=== PATIENT | male | born 1940 | race Caucasian/White ===

== ENCOUNTER → 2016-11-24 | Day surgery (SDC) | payer MEDICARE ==
[~2016-11-24] MED LIST: ADVAIR 2501 DISK W/1 IH; ADVAIR 2501 DISK W/D; ADVAIR 2501 DISK W/D PO; AMITIZA24 MCG PO; AMLODIPINE BESYL5 MG PO; ANUSOL-HC21 GM; ARICEPT PO; ASPIR-TRIN325 MG PO; ASPIRIN PO; BAYER ASPIRIN325 M1 PO; BUDEPRION PO; BUDEPRION SR100 M1 PO; BUDEPRION XL150 MG PO; BUDEPRION XL300 MG PO; BUPROPION HCL150 M1 PO; BUSPIRONE HCL10 MG PO; CELEXA PO; CELEXA20 MG PO; CITALOPRAM HBR40 MG PO; COLACE PO; COMBIVENT INH14.7 GM; CRESTOR10 MG PO; CYMBALTA; DETROL LA PO; DIOVAN; DIOVAN160 MG PO; EC-NAPROSYN500 MG PO; ECOTRIN325 MG PO; ELIQUIS5 MG PO; FLOMAX0.4 M1 PO; FLOMAX0.4 MG PO; GLUCOPHAGE500 MG PO; GLYCOPYRROLATE PO; GLYCOPYRROLATE2 MG PO; HCTZ; HCTZ PO; HYDROCHLOROTHIA25 MG PO; IMDUR; KCL; KRISTALOSE20 G/PK1 PO; LACTULOSE PO; LASIX20 MG PO; LATANOPROST2.5 ML OU; LIPITOR; LIPITOR20 MG PO; LISINOPRIL20 MG PO; LODINE PO; LOTREL 5/20 MG1 CAP; METFORMIN; METFORMIN HCL500 M1 PO; METHADONE PO; MILK OF MAGNESIA PO; MIRALAX17 GM PO; MIRALAX255 GM; MOBIC; MORPHINE; NAMENDA XR28 MG PO; NAPROSYN500 MG PO; NEXIUM; NORVASC PO; OXYCODONE HCL30 MG PO; OXYCODONE15 MG PO; OXYCONTIN PO; PANTOPRAZOLE SO40 MG PO; PERCOCET PO; PRESERVISION S1 EACH PO; PRESERVISION SO1 CAP PO; PRINIVIL20 M1 PO; ROBINUL FORTE2 MG; ROBINUL FORTE2 MG PO; SENNA S TABLET1 TAB; SENNA S TABLET1 TAB PO; SEROQUEL XR150 MG PO; SUBOXONE; TOPAMAX; TOPROL XL PO; TRAVATAN2.5 ML OU; TRAVATAN5 ML OU; TRAVOPROST 0.02.5 ML OU; XOPENEX HFA15 GM IH; XOPENEX HFA15 GM NEB; ZOCOR PO
--- NOTE | ~2016-11-24 | OR ---
Unit #: [id number] #: [id number] Patient: NATALIA PEARCE JR [id number] [address] [place], [place] [address] [id number] O MR#: [id number] NAME: NATALIA PEARCE JR ROOM: Date of Procedure: 11/24/2016 Admission Date: 11/24/2016 Surgeon: Anton Pina M.D. : 1940 Attending Physician: Anton Pina M.D. Primary Care Physician: Jose Syed M.D. OPERATIVE REPORT PREOPERATIVE DIAGNOSES 1. Neck pain. 2. Cervical facet disease. POSTOPERATIVE DIAGNOSES 1. Neck pain. 2. Cervical facet disease. PROCEDURE PERFORMED Cervical facet injections x2 levels with intravenous sedation and fluoroscopic guidance for needle localization. INDICATIONS FOR PROCEDURE The patient is a 76-year-old male with return of neck and periscapular pain due to significant degenerative cervical facet disease. The patient's surgery is suggested, but he refused due to his age with medical conditions. He is treated for chronic back issues with pain pump with good effect. The neck pain flares. He has done well with cervical facet injections. Last were done 5 months ago. Plan at this point is to repeat injection at the C5-C6 and C6-C7 levels bilaterally and if need be, repeat also at the C3-C4 and C4-C5. DESCRIPTION OF PROCEDURE The patient was placed in a seated position. Standard monitors were applied. 1 mg of Versed was given for sedation and anxiolysis, which was adequate. Vital signs remained stable. Sterile prep and drape then of the cervical area was performed. The skin then to the right of midline at the C5-C6 and C6-C7 level was localized with 1% lidocaine. A 20-gauge Quincke point needle was advanced with fluoroscopic guidance to bring the needle tip to within the edge of the respective facet joints. Once this was confirmed with fluoroscopy at each level, a dose of 1 mL of a mixture of 80 mg Depo-Medrol and 3 mL of 0.25% bupivacaine, 0.5 mL was placed in the joint and 0.5 mL just outside the joint. The exact same procedure was then repeated on the left C5-C6 and C6-C7 levels with the same dose of medication. The patient had no complaints of pain or paresthesia during needle placement. He tolerated the entire procedure well and was discharged to the recovery room in stable condition. Dictated by... Anton Pina M.D. Unit #: [id number] #: [id number] Patient: NATALIA PEARCE JR LHP/miracle TD: 11/25/2016 01:10 JOB #: [id number] OPERATIVE REPORT X Anton Pina MD X PROCEDURE OPERATIVE NOTE
== END | disposition home or self-care (01) ==
LOC: CCSC 10:03
DX: M47.22 Other spondylosis with radiculopathy, cervical region (principal); M50.10 Cervical disc disorder with radiculopathy, unspecified cervical region; I10 Essential (primary) hypertension; I25.10 Atherosclerotic heart disease of native coronary artery without angina pectoris; E66.01 Morbid (severe) obesity due to excess calories; E11.9 Type 2 diabetes mellitus without complications; F41.9 Anxiety disorder, unspecified; F32.9 Major depressive disorder, single episode, unspecified
CPT/HCPCS: 82947; J1040; J2250

== ENCOUNTER → 2016-12-01 | Day surgery (SDC) | payer MEDICARE ==
--- NOTE | ~2016-12-01 | OR ---
Unit #: [id number] #: [id number] Patient: NATALIA PEARCE JR [id number] [address] [place], [place] [address] [id number] O MR#: [id number] NAME: NATALIA PEARCE JR ROOM: Date of Procedure: 12/01/2016 Admission Date: 12/01/2016 Surgeon: Anton Pina M.D. : 1940 Attending Physician: Anton Pina M.D. Primary Care Physician: Jose Syed M.D. OPERATIVE REPORT PREOPERATIVE DIAGNOSES 1. Neck pain. 2. Cervical facet disease. 3. Cervical radiculopathy. POSTOPERATIVE DIAGNOSES 1. Neck pain. 2. Cervical facet disease. 3. Cervical radiculopathy. PROCEDURE PERFORMED Cervical facet injection x2 levels with fluoroscopic guidance and intravenous sedation. INDICATIONS FOR PROCEDURE The patient is a 76-year-old male with previously mentioned diagnosis. He has multilevel nonsurgical degenerative facet disease. He had injections done at C5-C6 and C6-C7 levels last week, which resulted in significant improvement in his symptom complex. He still have some pain bit higher in the neck consistent with the known facet disease at C3-C4 and C4-C5. Plan is to proceed with injections at these 2 levels today. DESCRIPTION OF PROCEDURE The patient was placed in the seated position. Standard monitors were applied. 1 mg of Versed was given for sedation and anxiolysis, which was adequate. Vital signs remained stable. Sterile prep and drape then of the cervical area was performed. The skin to the right of midline overlying the C3-C4 and C4-C5 facet joints localized with 1% lidocaine. A 22-gauge Quincke point spinal needle was then advanced via lateral approach in these respective facet joints. The patient had no complaints of pain or paresthesia. After confirming proper positioning with fluoroscopy, a dose of 1 mL of a mixture of 80 mg of Depo-Medrol and 1 mL of 0.25% bupivacaine was used, 0.5 mL inside the joint and 0.5 mL just outside the joint. The exact same procedure was then repeated on the left at C3-C4 and C4-C5 facet joints. The same dose of medication was used. The needles were flushed before removal. Again, the patient tolerated the entire procedure without complaint and was discharged to the recovery room in stable condition. Dictated by... Anton Pina M.D. Unit #: [id number] #: [id number] Patient: NATALIA PEARCE JR LHBrian/miracle TD: 12/02/2016 00:58 JOB #: [id number] OPERATIVE REPORT X Anton Pina MD X PROCEDURE OPERATIVE NOTE
== END | disposition home or self-care (01) ==
LOC: CCSC 10:00
DX: M47.22 Other spondylosis with radiculopathy, cervical region (principal); E11.9 Type 2 diabetes mellitus without complications; I10 Essential (primary) hypertension; I25.10 Atherosclerotic heart disease of native coronary artery without angina pectoris
CPT/HCPCS: 82947; J1040; J2250

== ENCOUNTER → 2017-02-23 | Day surgery (SDC) | payer MEDICARE ==
--- NOTE | ~2017-02-23 | OR ---
Unit #: [id number] #: [id number] Patient: NATALIA PEARCE JR [id number] [address] [place], [place] [address] [id number] O MR#: [id number] NAME: NATALIA PEARCE JR ROOM: Date of Procedure: 02/23/2017 Admission Date: 02/23/2017 Surgeon: Anton Pina M.D. : 1940 Attending Physician: Anton Pina M.D. Primary Care Physician: Jose Syed M.D. OPERATIVE REPORT PREOPERATIVE DIAGNOSES Neck pain, cervical spondylosis, cervical facet disease. POSTOPERATIVE DIAGNOSES Neck pain, cervical spondylosis, cervical facet disease. PROCEDURE PERFORMED Cervical facet injection x2 levels with intravenous sedation and fluoroscopic guidance for needle localization. INDICATIONS FOR PROCEDURE The patient is a 77-year-old male with return of neck pain. He does intermittently get upper extremity pain as well. He also has significant degenerative disk disease, last requiring epidural steroid injections over 2 years ago. The patient's biggest issue is pain in his neck. He has significant facet disease. He has nonsurgical pathology. Medications were insufficient and rehab did not help. Facet injections gave him significant improvement in his symptom complex. The pain is returned, so plan is to repeat those injections today. DESCRIPTION OF PROCEDURE The patient was placed in a seated position. Standard monitors were applied. 1 mg of Versed was given for sedation and anxiolysis, which were adequate. Vital signs remained stable. Sterile prep and drape then of the cervical area was performed. The skin at the right side was localized with 1% lidocaine just lateral to the C5-C6 and C6-C7 facet joints. At both of these levels, 22-gauge Quincke point spinal needles were advanced with fluoroscopic guidance to bring the needle tip to within the edge of the facet joint. After confirming proper positioning with fluoroscopy, a dose of 1 mL of a mixture of 80 mg Depo-Medrol and 3 mL of 0.25% bupivacaine were deposited, 0.5 mL within the joint and 0.5 mL just outside the joint. The needles were flushed and removed. The patient tolerated this part of procedure well. The exact same procedure was then repeated on the left at the C5-C6 and C6-C7 levels. The same dosing and medications were deposited. The needles were flushed. Again, there were no complaints of pain or paresthesia. The patient was discharged to the recovery room in stable condition. Dictated by... Anton Pina M.D. Unit #: [id number] #: [id number] Patient: NATALIA PEARCE JR LHP/miracle TD: 02/23/2017 22:31 JOB #: [id number] OPERATIVE REPORT Page 1 of 1 X Anton Pina MD X PROCEDURE OPERATIVE NOTE
== END | disposition home or self-care (01) ==
LOC: CCSC 07:51
DX: M47.812 Spondylosis without myelopathy or radiculopathy, cervical region (principal); M50.30 Other cervical disc degeneration, unspecified cervical region; M53.82 Other specified dorsopathies, cervical region; I25.10 Atherosclerotic heart disease of native coronary artery without angina pectoris; E66.01 Morbid (severe) obesity due to excess calories; E11.9 Type 2 diabetes mellitus without complications; I10 Essential (primary) hypertension; J44.9 Chronic obstructive pulmonary disease, unspecified; F41.9 Anxiety disorder, unspecified; Z91.041 Radiographic dye allergy status; Z79.891 Long term (current) use of opiate analgesic; Z79.899 Other long term (current) drug therapy
CPT/HCPCS: J1040; J2250